=== PATIENT | female | born 1960 | race Caucasian/White ===

== ENCOUNTER 2016-09-18 14:46 | Observation (INO) | payer OTHER ==
[~2016-09-18] VITALS: Ht 157.5 cm; Wt 68.0 kg
[2016-09-18 16:12] LABS: ADD SCAN DIFF NO
[2016-09-18 16:18] LABS: BASOPHIL # 0.1 10^3/ul (0.0-0.1); BASOPHILS % 0.7 % (0.0-2.0); EOSINOPHILS # 0.2 10^3/ul (0.0-0.5); EOSINOPHILS % 2.1 % (0.0-7.0); HEMATOCRIT 41.2 % (37.0-47.0); HEMOGLOBIN 13.7 g/dl (12.0-16.0); LYMPHOCYTES # 2.1 10^3/ul (0.8-2.9); LYMPHOCYTES % 18.7 % (15.0-51.0); MEAN CORPUSCULAR HEMOGLOBIN 28.5 pg (29.0-33.0); MEAN CORPUSCULAR HGB CONC 33.3 g/dl (32.0-37.0); MEAN CORPUSCULAR VOLUME 85.7 fl (82.0-101.0); MEAN PLATELET VOLUME 9.6 fl (7.4-10.4); MONOCYTE # 1.1 10^3/ul (0.3-0.9); MONOCYTES % 9.3 % (0.0-11.0); NEUTROPHIL # 7.8 10^3/ul (1.6-7.5); NEUTROPHILS % 68.8 % (39.0-77.0); PLATELET COUNT 356 10^3/UL (140-415); RED BLOOD COUNT 4.81 10^6/ul (4.20-5.40); RED CELL DISTRIBUTION WIDTH 13.9 % (11.5-14.5); WHITE BLOOD COUNT 11.4 10^3/ul (4.8-10.8)
--- NOTE | 2016-09-18 16:18 | RADRPT ---
PROCEDURE: XR Chest. CLINICAL INDICATION: Chest pain TECHNIQUE: Chest AP portable. COMPARISON: 06/02/2013 FINDINGS: The mediastinal structures are unremarkable. The heart is normal in size and configuration. The pu lmonary vascularity is normal. The lung jarrett are unremarkable. No consolidation is identified. The pleural spaces are unremarkable. The axial skeleton is unremarkable. IMPRESSION: No active intrathoracic disease. RPTAT: HGDB .Henrik Stevens MD, MD Date Time Electronically viewed and signed by .Henrik Stevens MD, on 09/18/2016 16:18 .B/
--- NOTE | 2016-09-18 16:27 | QN ---
Documentation Comment htn angina per order NINO WINCHESTER MD September 18, 2016 16:27
--- NOTE | 2016-09-18 16:28 | ERA ---
ER Documentation Chief Complaint Date/Time DATE: 09/18/16 TIME: 154 Chief Complaint Complains of headache x 4 days HPI 55-year-old female presents the emergency department complaining of chest pain. Of note, the triage note indicates that she is having headache. She denies a headache to me. She states that over the last 3-4 days she is having a nonspecific left-sided chest discomfort radiating to her left shoulder and her left neck. The pain is nonspecific, non-provoked. She reports no shortness of breath. She reports no nausea, vomiting, diaphoresis. Currently she reports the pain is a 5/10. ROS All systems reviewed and are negative except as per history of present illness. Medications Home Meds No Active Prescriptions or Reported Meds Allergies Allergies: Coded Allergies: Penicillins (Verified Allergy, Intermediate, 08/22/14) PMhx/Soc History of Surgery: No Anesthesia Reaction: No Hx Neurological Disorder: No Hx Respiratory Disorders: No Hx Cardiac Disorders: Yes (HIGH BLOOD PRESSURE) Hx Psychiatric Problems: No Hx Miscellaneous Medical Probl: No Hx Alcohol Use: No Hx Substance Use: No Hx Tobacco Use: No Smoking Status: Never smoker FmHx Family history of heart disease is positive Physical Exam Vitals Vital Signs Date Time Temp Pulse Resp B/P Pulse Ox O2 Delivery O2 Flow Rate FiO2 09/18/16 16:05 91 18 157/80 99 Room Air 09/18/16 16:02 0 09/18/16 15:09 98.8 96 20 147/69 98 Physical Exam GENERAL: The patient is well developed and appropriate for usual state of health in no apparent distress HEENT: Pupils equal, round, and reactive to light. EOMI. There is no scleral icterus. NECK: C-spine is soft and supple, there is no meningismus. There is no cervical lymphadenopathy. LUNGS: Clear to auscultation bilaterally. There are no rales, wheezes or rhonchi. HEART: Regular rate and rhythm, no murmurs, clicks, rubs or gallops. ABDOMEN: Soft, non-tender, non-distended. There are bowel sounds in all four quadrants. No rebound or guarding. EXTREMITIES: There is no peripheral cyanosis or edema. No focal swelling or erythema. NEURO: The patient moves all four extremities with 5/5 strength. Cranial nerves II - XII are intact. Normal gait. Alert and oriented SKIN: There is no apparent rash or petechiae. HEME/LYMPHATIC: There is no evidence of excessive bruising or lymphedema. PSYCHIATRIC: The patient does not appear anxious or depressed. Result Diagram: 09/18/16 1600 Results 24 hrs Laboratory Tests Test 09/18/16 16:00 White Blood Count 11.410^3/ul Red Blood Count 4.8110^6/ul Hemoglobin 13.7g/dl Hematocrit 41.2% Mean Corpuscular Volume 85.7fl Mean Corpuscular Hemoglobin 28.5pg Mean Corpuscular Hemoglobin Concent 33.3g/dl Red Cell Distribution Width 13.9% Platelet Count 51028^3/UL Mean Platelet Volume 9.6fl Neutrophils % 68.8% Lymphocytes % 18.7% Monocytes % 9.3% Eosinophils % 2.1% Basophils % 0.7% Nucleated Red Blood Cells % 0.0/100WBC Neutrophils # 7.810^3/ul Lymphocytes # 2.110^3/ul Monocytes # 1.110^3/ul Eosinophils # 0.210^3/ul Basophils # 0.110^3/ul Nucleated Red Blood Cells # 0.010^3/ul Procedures/MDM Patient was taken to a room, seen and evaluated. Comfort measures were initiated. Diagnostic tests were ordered and reviewed. 3 LEAD RHYTHM STRIP: Normal sinus rhythm without ectopy EK lead EKG reviewed by myself: Normal Sinus Rhythm Normal [place] and intervals Nonspecific ST and T-wave changes without ST elevation Impression: Abnormal, nonspecific EKG RADIOLOGY: 1 view CXR reviewed by myself: No bony or soft tissue abnormalities Cardiac silhouette normal Mediastinum normal Lung jarrett normal without infiltrate, mass, or CHF Pleura normal Impression: normal CXR CONSULTATION: Dr. Marr was notified for admission REEVALUATION: Patient remained hemodynamically stable and comfortable appearing MEDICAL DECISION MAKING: Patient presents with chest pain of uncertain etiology. Differential diagnosis considered includes acute myocardial infarction , pulmonary embolism, as well as vascular and pulmonary concerns. I have reviewed the patients clinical risk factors, EKG, lab studies and imaging. At this time, patient has a history of hypertension and family history of heart disease in the setting of a nonspecific abnormal EKG. Patient presents with enough risk that I am concerned about cardiac causes of her chest discomfort. Patient will be admitted for further observation, management and care at this time. Departure Diagnosis: Primary Impression: Chest pain Condition: SANDY Huertas September 18, 2016 16:28
[2016-09-18 16:29] LABS: CHLORIDE 111 mmol/L (97-110); SODIUM 145 mmol/L (135-144)
[2016-09-18] MEDS ORDERED: MAGNESIUM HYDROXIDE 30ML CUP PO PRN (16:30)
[2016-09-18] MEDS ORDERED: morphine 2 MG INJ IV PRN (16:30)
[2016-09-18] MEDS ORDERED: DOCUSATE SODIUM 100 MG CAP PO PRN (16:30)
[2016-09-18] MEDS ORDERED: NACL 0.9% 3 ML SYG IV SCH (16:30)
[2016-09-18 16:31] LABS: INR 0.98; PARTIAL THROMBOPLASTIN TIME 27.6 Sec (25.0-35.0)
[2016-09-18 16:32] LABS: CARBON DIOXIDE 29 mmol/L (21-31); CREATININE 0.86 mg/dl (0.44-1.00)
[2016-09-18 16:33] LABS: BLOOD UREA NITROGEN 16 mg/dl (7-20); CALCIUM 9.4 mg/dl (8.4-10.2); GLUCOSE 84 mg/dl (70-220)
[2016-09-18 16:44] LABS: ANION GAP 8 (8-16)
[2016-09-18 16:46] LABS: TROPONIN-I < 0.012 ng/ml (0.00-0.12)
[2016-09-18] MEDS ORDERED: AMLO-145 PO (16:58)
[2016-09-18] MEDS ORDERED: HYDR12.58 PO (16:58)
[2016-09-18] MEDS: SOD CHLORIDE 0.9% 1,000 ML IV SCH (17:04)
[2016-09-18 18:16] LABS: CK-MB 0.5 ng/ml (0.0-2.4)
[2016-09-18] MEDS: ACETAMINOPHEN 325 MG TAB PO PRN (18:49)
[2016-09-18 18:50] VITALS: TEMP 98.2
[2016-09-18 19:42] VITALS: PULSE 80
[2016-09-18 19:43] VITALS: BP 141/79; RESP 19
[2016-09-18 20:01] VITALS: PULSE 85
[2016-09-18 21:59] VITALS: Ht 157.5 cm; Wt 68.0 kg
[2016-09-18 22:16] LABS: CREATINE KINASE 144 IU/L (23-200)
[2016-09-18] MEDS: ZOLPIDEM 5 MG TAB PO PRN (22:24)
[2016-09-18 22:26] LABS: CK-MB 0.49 ng/ml (0.0-2.4)
[2016-09-18 22:30] LABS: TROPONIN-I < 0.012 ng/ml (0.00-0.12)
[2016-09-18 23:48] VITALS: BP 137/81; RESP 19
[2016-09-19] VITALS (12 sets, daily range): BP systolic 129–137; BP diastolic 69–90; PULSE 66–83; RESP 18–20
[2016-09-19 04:38] LABS: CREATINE KINASE 133 IU/L (23-200)
[2016-09-19 04:48] LABS: CK-MB 0.43 ng/ml (0.0-2.4)
[2016-09-19 04:52] LABS: TROPONIN-I < 0.012 ng/ml (0.00-0.12)
[2016-09-19] MEDS: ACETAMINOPHEN 325 MG TAB PO PRN ×2 (06:31→20:38)
[2016-09-19] MEDS: PANTOPRAZOLE (EC) 40 MG TAB PO SCH (06:31)
[2016-09-19] MEDS: ASPIRIN 325 MG TAB PO SCH (08:49)
[2016-09-19] MEDS: ENOXAPARIN 40 MG/0.4 ML SYG SC SCH (08:54)
--- NOTE | 2016-09-19 10:32 | QN ---
Documentation Comment [id number] NINO WINCHESTER MD September 19, 2016 10:32
[2016-09-19 10:43] LABS: CALCIUM 9.1 mg/dl (8.4-10.2); CREATININE 0.61 mg/dl (0.44-1.00); POTASSIUM 3.6 mmol/L (3.5-5.1)
--- NOTE | 2016-09-19 11:00 | HP ---
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 Presented with left upper extremity pain and has some pain in the chest area and back. [place] [address]. The patient's WBC 11. 4, hematocrit 41.2, platelet count of 356. Sodium 141, potassium 3. Troponin is reported as negati ve, and the patient's EKG shows normal sinus rhythm, nonspecific ST-T changes. PAST MEDICAL HISTORY: Hypertension. ALLERGY HISTORY: NEGATIVE. FAMILY HISTORY: Noncontributory. SOCIAL HISTORY: Negative. MEDICATION HISTORY: The patient is on: 1. Amlodipine. 2. Hydrochlorothiazide. REVIEW OF SYSTEMS: HEENT: Unremarkable. RESPIRATORY: Unremarkable. CARDIOVASCULAR: As mentioned above. ABDOMEN: Unremarkable. EXTREMITIES: Unremarkable. MUSCULOSKELETAL: Left upper extremity pain. PHYSICAL EXAMINATION: GENERAL: The patient is awake, alert. VITAL SIGNS: Stable. HEAD: Atraumatic, normocephalic. Pupils equal, reactive to light. NECK: Supple. No JVD. LUNGS: Clear. CARDIOVASCULAR: S1, S2 are normal. ABDOMEN: Soft, nontender. Bowel sounds present. No palpable mass or hepatosplenomegaly. No guard ing or rebound tenderness. EXTREMITIES: There is no cyanosis, clubbing, or edema. CENTRAL NERVOUS SYSTEM: The patient is awake, alert with no focal deficit. LABORATORY DATA: As mentioned above. IMPRESSION: 1. The patient has acute coronary syndrome. 2. Hypertension. 3. Hypokalemia. 4. Chest pain and possible musculoskeletal pain. PLAN: Obtain cardiology consultation. Oxygen, aspirin, nitroglycerin, 2D echo. Potassium suppleme ntation will be given. Orders were done. Dr. Love has been called to see this patient in consul tation. Dictated By: NINO WINCHESTER MD BS/NTS Conf#: [id number] DID#: [id number]
--- NOTE | 2016-09-19 15:34 | CONS ---
DATE OF ADMISSION: 09/18/2016 DATE OF CONSULTATION: 09/19/2016 TYPE OF CONSULTATION: Cardiology. REFERRING PHYSICIAN: Tip Marr MD REASON FOR CONSULTATION: Chest pain, precordial. HISTORY OF PRESENT ILLNESS: Ms. Elizabeth is a 55-year-old woman with history of hypertension, who come s to the hospital now for evaluation of discomfort in the left side of the chest. She works as a ho usekeeper. She says she was at work when she developed some discomfort in the neck and chest area, mostly on the left side. She had these symptoms before. The patient does have some risk factors fo r coronary artery disease including hypertension. I think it would be reasonable to stratify the ernesto reynolds with a stress test as this is her second admission for same symptomatology. I will try to fac ilitate the stress test for tomorrow. Continue medical optimization for now. PAST MEDICAL HISTORY: Hypertension, dyslipidemia, history of musculoskeletal pain in the past. ALLERGIES: NO KNOWN DRUG ALLERGIES. SOCIAL HISTORY: The patient does not smoke, does not drink, does not use any drugs. FAMILY HISTORY: Negative for sudden cardiac or premature coronary artery disease. MEDICATIONS: The patient is on: 1. Lovenox 40 mg subcutaneous once a day. 2. Aspirin 325 mg. 3. . 4. Tylenol. 5. Docusate. 6. Zolpidem. REVIEW OF SYSTEMS: CONSTITUTIONAL: No fevers, no chills, no recent weight changes. HEENT: No changes in vision or hearing. CARDIOVASCULAR: Chest pain was reported. Chest pain free now. RESPIRATORY: No shortness of breath. GASTROINTESTINAL: No nausea, vomiting, diarrhea, constipation. GENITOURINARY: No dysuria, hematuria. NEUROLOGIC: No focal neurologic deficits. HEMATOLOGIC: No easy bruising. PSYCHIATRIC: History of anxiety. PHYSICAL EXAMINATION: VITAL SIGNS: Temperature is 98.0, heart rate 76, blood pressures are 137/69. GENERAL: She is a well-nourished woman in no acute distress, alert and oriented x3, aware of her co ndition. HEAD: Normocephalic, atraumatic. Eyes anicteric. NECK: Supple. JVD 7 to 8 cm. There is no lymphadenopathy, no thyromegaly. HEART: Regular with soft holosystolic murmur at the apex. PMI is minimally displaced. There is no S3. LUNGS: Coarse at bases. ABDOMEN: Distended. Bowel sounds are present. There is no hepatosplenomegaly. GENITOURINARY: Grossly intact. EXTREMITIES: Show no clubbing, cyanosis, edema. ECG read by me show normal sinus rhythm, rate of , with nonspecific ST-T changes. LABORATORY DATA: White blood cells 9.4, hemoglobin 13.7. INR is 0.9. Creatinine is 0.61. Troponin is negative at 0.01. ASSESSMENT AND PLAN: 1. Chest pain. The patient did not rule in for ischemia. This is her second admission for chest p ain. We will risk stratify the patient with a stress test while she is in the hospital. 2. Hypertension. Blood pressure is optimally controlled. Continue to follow. 3. Hypokalemia. Replete potassium as warranted. 4. Musculoskeletal pain likely. Continue to follow. 4. Anxiety. Defer to primary team for evaluation and management. 5. Obesity. Weight loss is advised. I would like to thank, Dr. Marr, for referring this patient for my evaluation. Dictated By: TORRES PAYTON MD ML/NORMAN Conf#: [id number] DID#: [id number]
[2016-09-19] MEDS: SOD CHLORIDE 0.9% 1,000 ML IV SCH (16:27)
--- NOTE | 2016-09-19 18:24 | PN ---
Date/Time of Note Date/Time of Note DATE: 09/19/16 TIME: 18:24 Assessment/Plan VTE Prophylaxis VTE Prophylaxis Intervention: other Lines/Catheters IV Catheter Type (from Nrsg): Saline Lock Urinary Cath still in place: No Assessment/Plan Chief Complaint/Hosp Course htn r/o ihd plan per cardio Problems: Subjective 24 Hr Interval Summary Cardiovascular: no complaints Gastrointestinal: no complaints Genitourinary: no complaints Exam/Review of Systems Vital Signs Vitals Vital Signs Date Time Temp Pulse Resp B/P Pulse Ox O2 Delivery O2 Flow Rate FiO2 09/19/16 16:00 75 09/19/16 15:57 98.2 20 132/77 98 09/18/16 18:50 Room Air 09/18/16 16:02 0 Intake and Output 09/18/16 09/18/16 09/19/16 15:00 23:00 07:00 Intake Total 250 ml Balance 250 ml Exam Cardiovascular: regular rate and rhythm Gastrointestinal: soft Genitourinary - Female: nl adnexae Musculoskeletal: nl extremities to inspection Results Result Diagram: 09/18/16 1600 09/19/16 0327 Results 24 hrs Laboratory Tests Test 09/18/16 21:50 09/19/16 03:27 Creatine Kinase 144 133 Creatine Kinase Index 0.3 0.3 Creatinine Kinase MB (Mass) 0.49 0.43 Troponin I < 0.012 < 0.012 Sodium Level 139 Potassium Level 3.6 Chloride Level 106 Carbon Dioxide Level 28 Anion Gap 9 Blood Urea Nitrogen 14 Creatinine 0.61 Glucose Level 99 Calcium Level 9.1 Medications Medications Current Medications Sodium Chloride (NS) 1,000 ml @ 40 mls/hr Q24H IV Last administered on 17:04; Admin Dose 40 MLS/HR; Start 09/18/16 at 16:27 Acetaminophen (Tylenol Tab) 650 mg Q6H PRN PO PAIN LEVEL 1-3 OR FEVER Last administered on 09/19/16 06:31; Admin Dose 650 MG; Start 09/18/16 at 16:30 Morphine Sulfate (morphine) 2 mg Q4H PRN IV SEVERE PAIN LEVEL 7-10; Start 09/18 at 16:30 Docusate Sodium (Colace) 100 mg Q12H PRN PO CONSTIPATION; Start 09/18/16 at 16: 30 Magnesium Hydroxide (Milk Of Mag) 30 ml DAILY PRN PO CONSTIPATION; Start at 16:30 Zolpidem Tartrate (Ambien) 5 mg QHS PRN PO SLEEP Last administered on 22:24; Admin Dose 5 MG; Start 09/18/16 at 16:30 Pantoprazole (Protonix Tab) 40 mg DAILY@06 PO Last administered on 09/19/16 06 :31; Admin Dose 40 MG; Start 09/19/16 at 06:00 Enoxaparin Sodium (Lovenox) 40 mg DAILY SC Last administered on 09/19/16 08:54 ; Admin Dose 40 MG; Start 09/19/16 at 09:00 Aspirin (Aspirin) 325 mg DAILY PO Last administered on 09/19/16 08:49; Admin Dose 325 MG; Start 09/19/16 at 09:00 NINO WINCHESTER MD September 19, 2016 18:24
[2016-09-19] MEDS: ZOLPIDEM 5 MG TAB PO PRN (23:09)
[2016-09-20] VITALS (11 sets, daily range): BP systolic 117–141; BP diastolic 65–78; PULSE 72–102; RESP 18–20
[2016-09-20] MEDS: SOD CHLORIDE 0.9% 1,000 ML IV SCH ×2 (00:14→16:27)
[2016-09-20] MEDS: PANTOPRAZOLE (EC) 40 MG TAB PO SCH (05:49)
[2016-09-20 08:03] LABS: ADD SCAN DIFF NO
[2016-09-20 08:12] LABS: BASOPHIL # 0.1 10^3/ul (0.0-0.1); BASOPHILS % 1.2 % (0.0-2.0); EOSINOPHILS # 0.4 10^3/ul (0.0-0.5); EOSINOPHILS % 5.1 % (0.0-7.0); HEMOGLOBIN 13.1 g/dl (12.0-16.0); LYMPHOCYTES # 1.7 10^3/ul (0.8-2.9); LYMPHOCYTES % 24.9 % (15.0-51.0); MEAN CORPUSCULAR HEMOGLOBIN 28.9 pg (29.0-33.0); MEAN CORPUSCULAR HGB CONC 33.6 g/dl (32.0-37.0); MEAN CORPUSCULAR VOLUME 86.1 fl (82.0-101.0); MEAN PLATELET VOLUME 10.2 fl (7.4-10.4); MONOCYTE # 0.6 10^3/ul (0.3-0.9); MONOCYTES % 9.2 % (0.0-11.0); NEUTROPHIL # 4.1 10^3/ul (1.6-7.5); NEUTROPHILS % 59.2 % (39.0-77.0); PLATELET COUNT 315 10^3/UL (140-415); RED BLOOD COUNT 4.53 10^6/ul (4.20-5.40); WHITE BLOOD COUNT 6.9 10^3/ul (4.8-10.8)
[2016-09-20] MEDS: ASPIRIN 325 MG TAB PO SCH (08:36)
[2016-09-20] MEDS: ENOXAPARIN 40 MG/0.4 ML SYG SC SCH (09:50)
[2016-09-20] MEDS: REGADENOSON 0.4 MG/5 ML SYG ONE ×2 (12:04→12:30)
--- NOTE | 2016-09-20 12:31 | CONS ---
Date/Time of Note Date/Time of Note DATE: 09/20/16 TIME: 12:28 Assessment/Plan Assessment/Plan Chief Complaint/Hosp Course IMp: 1.Chest pain 2.abnl ecg 3.HTN 4.Anxiety 5.HYpokalemia Recc: -Tele -serial ecg's -Continue asa -start BB -Lexiscan stress test today Problems: Consultation Date/Type/Reason Admit Date/Time September 18, 2016 at 16:28 Initial Consult Date 09/20/2016 Type of Consultation: Cardiology Reason for Consultation Chest pain Referring Provider: NINO WINCHESTER Exam/Review of Systems Vital Signs Vitals Vital Signs Date Time Temp Pulse Resp B/P Pulse Ox O2 Delivery O2 Flow Rate FiO2 09/20/16 09:43 76 09/20/16 07:43 98.2 20 141/73 100 09/18/16 18:50 Room Air 09/18/16 16:02 0 Intake and Output 09/19/16 09/19/16 09/20/16 15:00 23:00 07:00 Intake Total 1480 ml 1180 ml Balance 1480 ml 1180 ml Exam Review of Systems: CONSTITUTIONAL: No fevers, chills. PULMONARY: No sob CARDIOVASCULAR:intermittent chest pain/palpitations GASTROINTESTINAL: No nausea/vomiting. GENITOURINARY: No hematuria/dysuria. MUSCULOSKELETAL: No myagias/arthalgias. PSYCHIATRIC: The patient denies depression. NEUROLOGIC: No weakness Constitutional: alert Psych: no complaints Head: normocephalic ENMT: mucosa pink and moist Neck: jvd (8 cm water), supple Respiratory: diminished breath sounds (at bases/B) Cardiovascular: regular rate and rhythm Gastrointestinal: non-tender, soft Musculoskeletal: muscle tone (normal) Extremities: edema (none) Neurological: other (No focal deficits) Results Result Diagram: 09/20/16 0700 09/19/16 0327 Results 24 hrs Laboratory Tests Test 09/20/16 07:00 White Blood Count 6.9 # Red Blood Count 4.53 Hemoglobin 13.1 Hematocrit 39.0 Mean Corpuscular Volume 86.1 Mean Corpuscular Hemoglobin 28.9 L Mean Corpuscular Hemoglobin Concent 33.6 Red Cell Distribution Width 14.0 Platelet Count 315 Mean Platelet Volume 10.2 Neutrophils % 59.2 Lymphocytes % 24.9 Monocytes % 9.2 Eosinophils % 5.1 Basophils % 1.2 Nucleated Red Blood Cells % 0.0 Neutrophils # 4.1 Lymphocytes # 1.7 Monocytes # 0.6 Eosinophils # 0.4 Basophils # 0.1 Nucleated Red Blood Cells # 0.0 Medications Medications Current Medications Sodium Chloride (NS) 1,000 ml @ 40 mls/hr Q24H IV Last administered on 00:14; Admin Dose 40 MLS/HR; Start 09/18/16 at 16:27 Acetaminophen (Tylenol Tab) 650 mg Q6H PRN PO PAIN LEVEL 1-3 OR FEVER Last administered on 09/19/16 20:38; Admin Dose 650 MG; Start 09/18/16 at 16:30 Morphine Sulfate (morphine) 2 mg Q4H PRN IV SEVERE PAIN LEVEL 7-10; Start 09/18 at 16:30 Docusate Sodium (Colace) 100 mg Q12H PRN PO CONSTIPATION; Start 09/18/16 at 16: 30 Magnesium Hydroxide (Milk Of Mag) 30 ml DAILY PRN PO CONSTIPATION; Start at 16:30 Zolpidem Tartrate (Ambien) 5 mg QHS PRN PO SLEEP Last administered on 23:09; Admin Dose 5 MG; Start 09/18/16 at 16:30 Pantoprazole (Protonix Tab) 40 mg DAILY@06 PO Last administered on 09/20/16 05 :49; Admin Dose 40 MG; Start 09/19/16 at 06:00 Enoxaparin Sodium (Lovenox) 40 mg DAILY SC Last administered on 09/20/16 09:50 ; Admin Dose 40 MG; Start 09/19/16 at 09:00 Aspirin (Aspirin) 325 mg DAILY PO Last administered on 09/19/16 08:49; Admin Dose 325 MG; Start 09/19/16 at 09:00 MOHIT LAMBERT September 20, 2016 12:31
--- NOTE | 2016-09-20 13:20 | CARRPT ---
DATE OF PROCEDURE: 09/20/2016 PROCEDURE: Lexiscan cardiac stress test. REASON FOR STRESS TESTING: Chest pain, abnormal electrocardiogram, assess for ischemia. BASELINE VITAL SIGNS AND ELECTROCARDIOGRAM: Pulse 84, blood pressure 165/80. Electrocardiogram was normal sinus rhythm, rate 84, normal axis, normal intervals, with T-wave flattening and isolated to lead aVL. DESCRIPTION OF PROCEDURE: The patient underwent standard Lexiscan infusion protocol over 10 seconds followed by radiolabeled tracer. The patient's test was stopped due to completion of protocol. Jered sanchez achieved blood pressure during the test was 75/81. Maximum heart rate during the test 117. ELECTROCARDIOGRAM FINDINGS: The patient did not develop any new Lexiscan-induced ST or T-wave cedillo es from baseline abnormalities. No documented PVCs. SYMPTOMS: The patient had no complaints of chest pain or shortness of breath during stress testing. IMPRESSION: 1. No Lexiscan-induced ST or T-wave changes from baseline abnormalities that are diagnostic of card iac ischemia. 2. No complaints of chest pain or shortness of breath during stress testing. 3. No documented premature ventricular contractions during stress testing. 4. Report of nuclear images to follow in separate dictation. Dictated By: MOHIT WALSH/NORMAN Conf#: [id number] DID#: [id number] CC: NINO WINCHESTER MD;*End*
--- NOTE | 2016-09-20 13:20 | RADRPT ---
PROCEDURE: Lexiscan myocardial perfusion study CLINICAL INDICATION: 55 -year-old patient complaining of chest pain. TECHNIQUE: Lexiscan 0.4 mg intravenously separate acquisition gated myocardial perfusion SPECT usi ng Tc 99m Myoview 30.5 mCi intravenously at stress and Tc-99m Myoview, 10.0 mCi intravenously at res t was performed using the rest/stress sequence. Poststress Myoview SPECT images were obtained in th e supine position. COMPARISON: No prior studies. FINDINGS: Perfusion images reveal no evidence of perfusion defects. Lexiscan post stress gated SPECT images demonstrate no wall motion abnormalities. IMPRESSION: 1. Normal study with no evidence of perfusion defects or wall motion abnormalities. 2. The left ventricle ejection fraction at stress is greater than 70%. A call report was made to Dr. Love at 01:19 p.m. on September 20, 2016. RPTAT: HH .Shu Palafox MD, Date Time Electronically viewed and signed by .Shu Palafox MD, on 09/20/2016 13:20 .L/
--- NOTE | 2016-09-20 17:13 | RADRPT ---
Echocardiogram Report Patient Name: YOSHI ARTEAGA Gender: Female Date: 1960 Study Date: 19-Sep-2016 Travel Physical Therapist: Joseph [facility] Location: 5560 Ref. Physician: TORRES PAYTON Quality: Technically Difficult Study Procedures: Transthoracic echocardiogram with complete 2D, M-Mode, and doppler examination. Indications: Chest Pain, Left Arm Pain. 2D/M Mode Doppler Measurement Value Normal Ranges Measurement Value Normal Ranges LVIDd 2D 3.6 3.5 - 5.6 cm AV Peak [place] 1.5 m/sec LVIDs 2D 2.7 2.1 - 4.1 cm AV Peak PG 9.1 mmHg LVPWd 2D 1.0 0.6 - 1.1 cm LVOT Peak [place] 1.0 m/sec IVSd 2D 1.0 0.6 - 1.1 cm LVOT Peak PG 3.8 mmHg AoR Diam 2D 2.6 2.0 - 3.7 cm MV E Peak [place] 0.9 m/sec EDV 2D 55.2 cm3 MV A Peak [place] 1.0 m/sec ESV 2D 18.6 cm3 MV E/A 0.9 LA Dimen 2D 2.8 2.3 - 4.0 cm MV Decel Time 211 msec MV Decel [place] 4 MV E/A 0.9 TR Peak [place] 2.4 m/sec TR Peak PG 22.6 mmHg RVSP 26.0 mmHg Findings Left Ventricle: Normal left ventricular systolic function. Normal left ventricular cavity size. Normal left ventricular wall thickness. Ejection fraction is visually estimated at 60 %. Tissue Doppler/Mitral Doppler indices are consistent with impaired relaxation (Stage I diastolic dysfunction). Right Ventricle: Normal right ventricular size. Normal right ventricular systolic function. Left Atrium: The left atrium is normal in size. Right Atrium: The right atrium is normal in size. Mitral Valve: Trace mitral regurgitation. Aortic Valve: Normal appearance of the aortic valve. No significant aortic stenosis or insufficiency. Tricuspid Valve: Normal appearance of the tricuspid valve. Estimated peak PA systolic pressure 26 mmHg. There is mild tricuspid regurgitation. Pulmonic Valve: There is trace pulmonic regurgitation. Pericardium: Normal pericardium with no significant pericardial effusion. Aorta: Normal aortic root. IVC: Normal size and normal respiratory collapse consistent with normal right atrial pressure. Conclusions 1.Normal left ventricular systolic function. Normal left ventricular cavity size. Normal left ventricular wall thickness. Ejection fraction is visually estimated at 60 %. Tissue Doppler/Mitral Doppler indices are consistent with impaired relaxation (Stage I diastolic dysfunction). 2.Trace mitral regurgitation. 3.Normal appearance of the tricuspid valve. Estimated peak PA systolic pressure 26 mmHg. There is mild tricuspid regurgitation. 4.There is trace pulmonic regurgitation. Electronically Signed By: Dave Love 20-Sep-2016 17:12:53 -0700 Patient Name: YOSHI ARTEAGA Study Date: 19-Sep-2016 [id number]
--- NOTE | 2016-09-20 19:16 | PDOCDIS ---
Discharge Instructions CONDITION Patient Condition: Stable HOME CARE INSTRUCTIONS: Special Diet: low fat low cholesterol ACTIVITY: Activity Restrictions: Slowly Increase Activity FOLLOW UP/APPOINTMENTS Appointments f/u own pcp [address] ramírez 1 wk NINO WINCHESTER MD September 20, 2016 19:16
[2016-09-20] MEDS ORDERED: METO-448 PO (19:18)
[2016-09-20] MEDS ORDERED: METOPROLOL 25 MG TAB PO SCH (20:00)
[2016-09-20] MEDS: ACETAMINOPHEN 325 MG TAB PO PRN (20:40)
--- NOTE | 2016-09-22 17:03 | QN ---
Documentation Comment [id number] NINO WINCHESTER MD Sep 22, 2016 17:03
--- NOTE | 2016-09-22 17:59 | DS ---
DATE OF ADMISSION: 09/18/2016 DATE OF DISCHARGE: 09/20/2016 HOSPITAL COURSE: The patient was admitted with chest pain, shoulder pain. The patient's VA was rul ed out. Underwent Lexiscan. Lexiscan results were negative, no evidence of perfusion defect or wal l motion abnormality, ejection fraction 70%. The patient was seen by Dr. Love in consultation. Medicines were optimized. DISCHARGE DIAGNOSIS: Atypical chest pain, myocardial infarction ruled out, status post Lexiscan, ne gative, ejection fraction 70%. DISCHARGE MEDICATIONS: Continue home medications. Prescription for metoprolol was given. CONDITION: The patient is stable at the time of discharge. Dictated By: NINO SOTO/NORMAN Conf#: [id number] DID#: [id number]
== END 2016-09-20 21:50 | disposition home or self-care (01) ==
LOC: E/R 14:46 → MS4 16:28
PROVIDERS: ADMIT Internal Medicine Nephrology; ATTEND Internal Medicine Nephrology
DX: R07.89 Other chest pain (principal); I10 Essential (primary) hypertension; E87.6 Hypokalemia; E78.5 Hyperlipidemia, unspecified; F41.9 Anxiety disorder, unspecified; E66.9 Obesity, unspecified; Z68.27 Body mass index [BMI] 27.0-27.9, adult; Z79.82 Long term (current) use of aspirin; Z88.0 Allergy status to penicillin; Z82.49 Family history of ischemic heart disease and other diseases of the circulatory system
CPT/HCPCS: 36415; 71010; 78452; 80048; 82550; 82553; 84484; 85025; 85610; 85730; 93005; 93017; 93306; 96372; A9500; A9505; J1650; J2785; J7030; Z7500; Z7502; Z7610; G0378